=== PATIENT | female | born 1970 | race Hispanic/Latino ===

== ENCOUNTER 2017-11-13 23:57 | Emergency (ER) | payer OTHER ==
[2017-11-14] MEDS ORDERED: diphenhydrAMINE 50 MG/ML VIAL ONE (00:31)
[2017-11-14] MEDS ORDERED: Metoclopramide HCl 10 MG/2 ML VIAL ONE (00:31)
== END 2017-11-14 03:03 | disposition home or self-care (01) ==
LOC: NAV ERS 23:57
DX: G43.909 Migraine, unspecified, not intractable, without status migrainosus (principal)
CPT/HCPCS: 96361; 96374; 96375; J1200; J2765

== ENCOUNTER 2021-03-30 15:07 | Outpatient (CLI) | payer OTHER | END 2021-03-30 15:08 | disposition home or self-care (01) | LOC: NAV RAD 15:07 | PROVIDERS: ATTEND Nurse Practitioner Family | DX: K59.00 Constipation, unspecified (principal); R10.9 Unspecified abdominal pain | CPT/HCPCS: 74018 ==